=== PATIENT | female | born 1950 | race Caucasian/White ===

== ENCOUNTER → 2017-02-14 | Outpatient (CLI) | payer OTHER, MEDICAID ==
--- NOTE | 2017-02-14 15:46 | XR ---
EXAMINATION TYPE: XR foot complete LT DATE OF EXAM: 02/14/2017 3:40 PM COMPARISON: NONE HISTORY: Pain TECHNIQUE: Three views are submitted. FINDINGS: The osseous structures are intact and the joint spaces are preserved. There is no acute fracture or dislocation. Diffuse osteopenia noted. Narrowing of the DIP joints of all digits and first MTP joint . Small plantar calcaneal spur. IMPRESSION: 1. No acute fracture or dislocation. If symptoms persist, follow-up exam in 7 to 10 days could be ob tained.
--- NOTE | 2017-02-14 15:48 | XR ---
EXAMINATION TYPE: XR ankle complete LT DATE OF EXAM: 02/14/2017 3:40 PM COMPARISON: NONE HISTORY: Pain FINDINGS: Three views of the ankle demonstrate the ankle mortise to be intact and symmetric. The joint spaces are preserved. The osseous structures are intact. Tiny calcaneal spur noted. IMPRESSION: 1. No definite acute fracture or dislocation, if symptoms persist follow-up study in 7 to 10 days wou ld be suggested.
== END | disposition home or self-care (01) ==
LOC: RADXRMAIN 15:18
PROVIDERS: ATTEND Emergency Medicine
DX: S93.402A Sprain of unspecified ligament of left ankle, initial encounter (principal); S93.602A Unspecified sprain of left foot, initial encounter

== ENCOUNTER → 2017-03-02 | Outpatient (CLI) | payer OTHER ==
--- NOTE | 2017-03-03 14:50 | MR ---
MR left ankle and MR left foot HISTORY: Ankle and foot sprain Multiplanar multisequence images obtained through the left foot and ankle. Correlation to left foot and ankle dated 14 February 2017 Abnormal increased signal is present within the medial cuneiform compatible with marrow edema, there may be associated microtrabecular fracture. Some local soft tissue edema changes are present. No evid ent Lisfranc fracture dislocation. Alignment is maintained. Achilles tendon, plantar aponeurosis are intact. Flexor and extensor tendons are intact. Peroneal longus and brevis tendons are intact. No siz able fluid collection. IMPRESSION: Bone marrow edema medial cuneiform as described, there may be associated microtrabecular fracture, follow-up as indicated.
== END | disposition home or self-care (01) ==
LOC: RADMRIMAIN 19:39
PROVIDERS: ATTEND Emergency Medicine
DX: R93.8 Abnormal findings on diagnostic imaging of other specified body structures (principal)